=== PATIENT | female | born 1960 | race Caucasian/White ===

== ENCOUNTER 2020-11-16 15:17 | Emergency (ER) | payer OTHER, SELFPAY ==
[2020-11-16 15:18] VITALS: BP 138/91; PULSE 82; RESP 16; TEMP 36.3; O2SAT 96; BMI 37.0
[2020-11-16] MEDS: HYDROcodone Bitartrate/Apap 5/325 Tablet PO (15:41)
--- NOTE | 2020-11-16 15:45 | RAD_ITS ---
STUDY: X-RAY - RIGHT SHOULDER REASON FOR EXAM: Female, 60 years old. Shoulder and back pain for several days. TECHNIQUE: 4 view(s) of the shoulder. COMPARISON: None. FINDINGS: Normal glenohumeral articulation. Normal acromioclavicular joint. Normal acromion. There is no acute fracture, dislocation or destructive osseous pathology. Normal humeral head and visualized proximal humerus. The soft tissue structures are unremarkable. Normal visualized pulmonary apex. RAD/Shoulder min 2 Views IMPRESSION: No acute abnormality of the right shoulder. Electronically Signed: Fredo Pineda DO at 16:20 EDT Tel [phone], Service support ,
--- NOTE | 2020-11-16 16:18 | ED.VISSUMM ---
- ER Visit Summary Date of Service: 11/16/20 Chief Complaint: Right shoulder pain History of Present Illness: The patient is a [address] Dean. She is right-hand dominant. She reports that 2 days ago she was laying on the couch and her grabbed her hand and helped pull her up off the couch and she had the abrupt onset of right shoulder pain. It is an aching pain that is 10 on 10 at worst 9-10 currently. Is worsened by putting pressure on it. Is unchanged with movement of her shoulder. States it is relieved by rubbing it and using a heating pad. She denies any paresthesias or weakness. Physical Examination: Vitals: Stable. Afebrile. Neck: No vertebral tenderness. Full ROM without difficulty. Cleared by NEXUS criteria. Back: No vertebral tenderness. General: A&O x 3. NAD. Cardiovascular exam: Regular rate and rhythm, no murmur, rub or gallop. Respiratory exam: Chest nontender. No crepitus. Clear to auscultation bilaterally. No wheezes or stridor. Abdominal exam: Soft, nontender, nondistended, normal bowel sounds. No pain in RUQ or LUQ specifically. No peritoneal signs. Extremity: No tenderness to palpation over the proximal humerus. Full range of motion with the of her shoulder without any difficulty. She has no overlying erythema warmth to suggest a septic joint. She does have moderate tenderness palpation over the right trapezius muscle. 2+ radial pulse bilaterally. She has normal sensation light touch in C5-T1 distribution. Test Results: Clinical Impression(s) from Imaging Studies Shoulder X-Ray 11/16/20 15:45 IMPRESSION: No acute abnormality of the right shoulder. Electronically Signed: Fredo Pineda DO at 16:20 EDT Tel [phone], Service support , Emergency Department Course and Treatment: Patient was given Bristol p.o. She has no pain with movement of her shoulder. I do not think a sling would be helpful. Treatment Plan: Patient be discharged prescription for Bristol and senna. She is instructed on symptomatic care. We did discuss the possibility of having a torn rotator cuff. Instructed to follow-up with her primary care physician 1 week if not improving. Return to the emergency department for any worsening symptoms. Disposition: To home in improved and stable condition. Impression: 1. Right trapezius strain. This note was generated with [employer] dictation software. It may contain incorrect words, spelling, and punctuation that were not noted in review of the chart prior to signing ED Disposition - Plan for ED Patient: Disposition: Home or Assisted Living Instructions: ED Shoulder Pain, Uncertain Cause Prescriptions: Hydrocodone Bitart/Apap 5-325 [Bristol 5MG-325MG] 1 tablet PO Q4H PRN PRN 2 Days #10 tab PRN Reason: Pain Prescription Printed Sennosides [Senna] 8.6 mg PO QHS #10 tablet Prescription Printed Referrals: Kristen Dean MD [Primary Care Provider] - 1 Week if not improving
== END 2020-11-16 16:40 | disposition home or self-care (01) ==
LOC: ED 16:09
PROVIDERS: Emergency Provider Emergency Medicine; PCP Family Medicine
DX: S29.012A Strain of muscle and tendon of back wall of thorax, initial encounter (principal); X50.9XXA Other and unspecified overexertion or strenuous movements or postures, initial encounter; I10 Essential (primary) hypertension; E78.00 Pure hypercholesterolemia, unspecified; I48.91 Unspecified atrial fibrillation; G47.33 Obstructive sleep apnea (adult) (pediatric)
CPT/HCPCS: 73030; 99283